=== PATIENT | female | born 1980 | race Caucasian/White ===

== ENCOUNTER → 2021-12-15 13:55 | Outpatient (CLI) | payer BC, SELFPAY ==
--- NOTE | ~2021-12-15 | MM_ITS ---
EXAMINATION: MM screening nuria BI w edward HISTORY: Screening TECHNIQUE: Craniocaudal and mediolateral oblique 3-D tomosynthesis images were obtained and synthetic 2-D images were generated. CAD analysis was submitted and interpreted. COMPARISON: No prior mammogram is available for comparison at this institution. BREAST PARENCHYMAL COMPOSITION: There are scattered areas of fibroglandular density. FINDINGS: There are asymmetries in the centered in the upper central left breast. The right breast is is unremarkable without evidence for focal mass. IMPRESSION: 1. Left breast asymmetries upper central left breast. 2. Additional mammographic views and possible breast ultrasound are recommended. BI-RADS Category 0: Incomplete: Needs additional imaging evaluation. Reviewed, dictated and finalized at location A. IMPRESSION: 1. Left breast asymmetries upper central left breast. 2. Additional mammographic views and possible breast ultrasound are recommended . BI-RADS Category 0: Incomplete: Needs additional imaging evaluation.
== END ==
PROVIDERS: Visit Provider Obstetrics & Gynecology
DX: Z12.31 Encounter for screening mammogram for malignant neoplasm of breast (principal); R92.8 Other abnormal and inconclusive findings on diagnostic imaging of breast
CPT/HCPCS: 77063; 77067

== ENCOUNTER → 2022-02-06 09:51 | Outpatient (CLI) | payer BC, SELFPAY ==
--- NOTE | ~2022-02-06 | MMUS_ITS ---
EXAMINATION: MM diagnostic nuria LT w edward, US breast LT limited HISTORY: Left central upper breast asymmetry on 12/15/2021 screening mammogram TECHNIQUE: Additional 3-D tomosynthesis images of were performed and synthetic 2-D images were genera dimas. CAD analysis was submitted and interpreted. High resolution upper inner and upper outer quadrant left breast ultrasound was performed. COMPARISON: 12/15/2021 bilateral screening mammogram FINDINGS: MAMMOGRAPHIC FINDINGS: No suspicious mass, architectural distortion, malignant calcification, skin thickening or retraction is evident. ULTRASOUND: No suspicious mass, shadowing, cyst or other significant sonographic finding is noted in the upper in ner or upper outer quadrants of the left breast IMPRESSION: 1. No mammographic evidence of malignancy 2. Routine annual mammographic screening is recommended BI-RADS Category 1: Negative Reviewed, dictated and finalized at location A. IMPRESSION: 1. No mammographic evidence of malignancy 2. Routine annual mammographic screening is recommended BI-RADS Category 1: Negative
== END ==
PROVIDERS: PCP Obstetrics & Gynecology; Visit Provider Student in an Organized Health Care Education/Training Program
DX: R92.8 Other abnormal and inconclusive findings on diagnostic imaging of breast (principal)
CPT/HCPCS: 76642; 77061; 77065; G0279